=== PATIENT | female | born 1970 | race Caucasian/White ===

== ENCOUNTER → 2017-11-24 | Outpatient (CLI) | payer OTHER, BC | LOC: RAD 15:28 | DX: G89.29 Other chronic pain (principal); M54.6 Pain in thoracic spine; M47.896 Other spondylosis, lumbar region ==

== ENCOUNTER 2018-12-18 09:25 | Emergency (ER) | payer OTHER ==
[~2018-12-18] VITALS: Ht 167.6 cm; Wt 99.8 kg
[2018-12-18] MEDS ORDERED: NAPROSYN500 MG PO (11:51)
[2018-12-18] MEDS ORDERED: NORFLEX100 MG PO (11:51)
[2018-12-18 12:19] VITALS: BP 146/81
== END 2018-12-18 12:20 | disposition home or self-care (01) ==
LOC: ER 09:25
DX: S16.1XXA Strain of muscle, fascia and tendon at neck level, initial encounter (principal); S39.012A Strain of muscle, fascia and tendon of lower back, initial encounter; Z88.5 Allergy status to narcotic agent; W07.XXXA Fall from chair, initial encounter; Y93.89 Activity, other specified; Y92.89 Other specified places as the place of occurrence of the external cause; Y99.8 Other external cause status

== ENCOUNTER → 2019-01-28 | Outpatient (CLI) | payer OTHER ==
[~2019-01-28] MED LIST: NAPROSYN500 MG PO; NORFLEX100 MG PO
== END ==
LOC: MRI 10:45
DX: M51.25 Other intervertebral disc displacement, thoracolumbar region (principal); M54.13 Radiculopathy, cervicothoracic region

== ENCOUNTER → 2019-03-16 | Outpatient (CLI) | payer OTHER ==
--- NOTE | ~2019-03-16 | EEG ---
[facility] [address] [place] [address] ELECTROENCEPHALOGRAM Name: DAVE SALMERON Room #: REG DARIO Narciso.Laya.#: [id number] ������������������ Admission: 03/16/19 ������������������ Attend Phys: Isaac Dominguez MD Discharge: ������������������ Date of : 72 Report #: [id number] ����������������������������������������������������������������� [id number] THIS REPORT FOR: //name// CC: Dior Dominguez DATE OF SERVICE: 03/16/2019 METHOD: The EEG was done by placing the electrodes by standard 10-20 system of electrode placement. Both referential and sequential montages were used for recording. Background activity in this patient's EEG is about 11 Hz and 30 microvolt. There is symmetrical activity. The patient became drowsy and that is associated with bilateral slowing. Photic stimulation was unremarkable. Throughout the record, no active epileptiform activity was noticed. IMPRESSION: This patient's electroencephalogram is within normal limit. Thank you very much for this referral. ���������������������������������������� ���������������������������������������� By: ��������������������������������������������� 1045 1054 Isaac Dominguez MD /nt
== END ==
LOC: NEURO 11:23
DX: G44.301 Post-traumatic headache, unspecified, intractable (principal); R42 Dizziness and giddiness

== ENCOUNTER → 2019-04-05 | Outpatient (CLI) | payer OTHER, BC | LOC: BC 10:31 | DX: Z12.31 Encounter for screening mammogram for malignant neoplasm of breast (principal) ==

== ENCOUNTER → 2019-04-08 | Outpatient (CLI) | payer OTHER, BC ==
--- NOTE | 2019-04-08 09:42 | 2DMMODE ---
[facility] [place] [address] 2 D/M-MODE ECHOCARDIOGRAM Name: DAVE SALMERON Room #: REG [facility]#: [id number] ������������� Admission: 04/08/19 ������������� Attend Phys: Isaac Dominguez, Discharge: ��� ������������� ��� Date of : 72 Date of Service: 04/08/19 0942 �� Report #: [id number] �������� ��������������������������������������������[id number] THIS REPORT FOR: //name// APPROVED REPORT Study performed: 04/08/2019 08:10:09 EXAM: Comprehensive 2D, Doppler, and color-flow Echocardiogram Patient Location: Echo lab, Out-Patient Status: routine BSA: 2.15 HR: 72 bpm BP: 124/82 mmHg Rhythm: NSR Other Information Study Quality: Adequate Risk Factors: Cardiac Risk Factors: HTN Indications Intractable Headache R/O PFO Echo Enhancing Agent Indication: Rule Out Septal Defect Agent(s) / Amount(s) Used: Agitated Saline 7 cc 2D Dimensions IVSd: 10.80 (7-11mm) LVOT Diam: 21.00 (18-24mm) LVDd: 47.33 mm PWd: 11.58 (7-11mm) Ascending Ao: 34.61 (22-36mm) LVDs: 33.34 (25-40mm) Aortic Root: 30.05 mm LV Single Plane 4CH: 40.99 % LV Single Plane 2CH: 55.98 % Biplane EF: 51.5 % Volumes Left Atrial Volume (Systole) Single Plane 4CH: 65.74 mL Single Plane 2CH: 53.19 mL LA ESV Index: 30.00 mL/m2 [facility] [address] [place] [address] 2 D/M-MODE ECHOCARDIOGRAM Name: DAVE SALMERON TORI Room #: REG [facility]#: [id number] ������������� Admission: 04/08/19 ������������� Attend Phys: Isaac Dominguez, Discharge: ��� ������������� ��� Date of : 72 Date of Service: 04/08/19 0942 �� Report #: [id number] �������� ��������������������������������������������[id number] Aortic Valve AoV Peak Jim.: 1.56 m/s AO Peak Gr.: 9.79 mmHg LVOT Max P.80 mmHg LVOT Max V: 0.97 m/s NADEEN Vmax: 2.11 cm2 Mitral Valve E/A Ratio: 1.0 MV Decel. Time: 226.94 ms MV E Max Jim.: 0.69 m/s MV A Jim.: 0.69 m/s MV PHT: 65.81 ms IVRT: 69.20 ms TDI E/Lateral E': 6.90 E/Medial E': 11.50 Medial E' Jim.: 0.06 m/s Lateral E' Jim.: 0.10 m/s Pulmonary Valve PV Peak Jim.: 0.81 m/s PV Peak Gr.: 2.64 mmHg Pulmonary Vein P Vein S: 0.70 m/s P Vein A: 0.23 m/s P Vein D: 0.51 m/s P Vein A Dur.: 76.1 msec P Vein S/D Ratio: 1.37 Tricuspid Valve TR Peak Jim.: 2.17 m/s RAP Estimate: 7.00 mmHg TR Peak Gr.: 18.79 mmHg PA Pressure: 26.00 mmHg Left Ventricle The left ventricle is normal size. There is normal LV segmental wall motion. There is normal left ventricular wall thickness. The left ventricular systolic function is normal. The left ventricular ejection fraction is within the normal range. LVEF is 50-55%. Right Ventricle The right ventricle is normal size. The right ventricular systolic function is normal. Atria The left atrium size is normal. Injection of bubbles documented no interatrial shunt. The right atrium size is normal. [facility] [address] [place] [address] 2 D/M-MODE ECHOCARDIOGRAM Name: DAVE SALMERON Room #: REG [facility]#: [id number] ������������� Admission: 04/08/19 ������������� Attend Phys: Isaac Dominguez, Discharge: ��� ������������� ��� Date of : 72 Date of Service: 04/08/19 0942 �� Report #: [id number] �������� ��������������������������������������������[id number] Aortic Valve The aortic valve is normal in structure. No aortic regurgitation is present. There is no aortic valvular stenosis. Mitral Valve The mitral valve is normal in structure. Trace mitral regurgitation. No evidence of mitral valve stenosis. Tricuspid Valve The tricuspid valve is normal in structure. Trace tricuspid regurgitation. Pulmonary artery pressure is 26 mmHg. Pulmonic Valve The pulmonary valve is normal in structure. Trace pulmonic regurgitation. Great Vessels The aortic root is normal in size. The ascending aorta is normal in size. IVC is normal in size and collapses >50% with inspiration. Pericardium There is no pericardial effusion. <Conclusion> The left ventricle is normal size. The left ventricular systolic function is normal. The right ventricle is normal size. The left atrium size is normal. The right atrium size is normal. Injection of bubbles documented no interatrial shunt. The aortic valve is normal in structure. Trace mitral regurgitation. Trace tricuspid regurgitation. Pulmonary artery pressure is 26 mmHg. ��������������������������������������������� <ELECTRONICALLY SIGNED> ���������������������������������������� By: Farhan Melgar MD ��������������������������������������������� 04/08/1941 Farhan Melgar MD /INF
== END ==
LOC: CV 07:07
DX: R51 Headache (principal); R20.2 Paresthesia of skin

== ENCOUNTER → 2019-04-27 | Outpatient (CLI) | payer OTHER, BC ==
[~2019-04-27] VITALS: Ht 167.6 cm; Wt 102.1 kg
[~2019-04-27] MED LIST changes: +FLEXERIL PO; +LOSARTAN-HCTZ1 EAC1 PO; +MOBIC15 MG PO; +NEURONTIN 300300 M1 PO; +OMEPRAZOLE40 MG PO; +OXYBUTYNIN 5 MG5 M2 PO; +TOPAMAX 25 MG T25 M1 PO; +TRAZODONE HCL50 MG PO; +TUMS PO; +VITAMIN C250 MG PO
[2019-04-27 12:34] VITALS: BP 127/89
--- NOTE | 2019-04-27 13:12 | NUR ---
Pain Clinic Assessment: 1. History of Osteoarthritis: Not Applicable History of Rheumatoid Arthritis: Not Applicable 2. Height: 5 ft. 6 in. 167.6 cm. Weight: 225.0 lb. oz. 102.060 kg. Patient's BMI: 36.3 3. Vital Signs: BP: 127/89 Pulse: 90 Resp: 16 Temp: 02 Sat: 97 ECG Mon: 4. Pain Intensity: 5 5. Fall Risk: Dizziness: Y Needs help standing or walking: N Fallen in the last 3 months: Y Fall risk comments: 6. Patient on Blood Thinner: None 7. History of Hypertension: N 8. Opioid Therapy greater than 6 weeks: N Opiate Contract Signed: 9. Risk Assessment Tool Provided: LOW RISK 09/17 10. Functional Assessment Tool: 11. Recreational Drug Use: Never Drug Type: Tobacco Use: Never Smoker Tobacco Type: Amount or Packs/day: How Many Years: Alcohol Use: Yes Frequency: Monthly Quant: 1-2
--- NOTE | 2019-04-28 08:14 | HPC ---
[facility] [address] [place] [address] PAIN MANAGEMENT CONSULTATION Name: DAVE SALMERON Room #: REG DARIO Elder.#: [id number] Admission: 04/27/19 Attend Phys: Arcadio Mirza DO Discharge: Date of : 72 Report #: [id number] THIS REPORT FOR: //name// CC: Arcadio Valdivia MD DATE OF SERVICE: 04/27/2019 REFERRING PHYSICIAN: Dr. Eugenio Gipson. PRIMARY CARE PHYSICIAN: Dior Valdivia MD CHIEF COMPLAINT: Neck pain, bilateral upper extremity pain with paresthesias. HISTORY OF PRESENT ILLNESS: As you know, the patient is a 49-year-old female who reports acute onset of neck pain, bilateral upper extremity pain that began on 12/18/2018. The patient did not report any specific injury or trauma on her intake sheet that may have led the symptom development. She states she has been dealing with pain for a period of time and has undergone injections with Dr. Gipson in regards to lumbar related pain. The patient apparently was evaluated and determined that she was suffering from cervical radiculopathy and was then subsequently referred to our clinic to trial cervical epidural injections to address neck and upper extremity pain. The patient indicates today pain is continuous, constant and periodic with brief exacerbations. She describes the pain as burning, shooting, throbbing, pounding, sharp, stabbing, numbness and tingling. She places current pain score 5/10, daily average of 4-5/10, worst pain has been is 10/10. The patient states that specific activities exacerbate symptoms, specifically on how she sits or moves her neck. Pain is improved with decreased moving and decreased activity. After undergoing imaging of the cervical spine with the findings at the C5-C6 level with a large, broad-based posterior disk bulge, the patient was referred to trial cervical epidural injections. PAST MEDICAL HISTORY: 1. Hypertension. 2. Gastroesophageal reflux disease. 3. History of headaches. PAST SURGICAL HISTORY: 1. [place] teeth extraction. 2. Hysterectomy with bladder sling. SOCIAL HISTORY: The patient denies tobacco, IV or illicit drug use. Admits to [facility] [address] [place] [address] PAIN MANAGEMENT CONSULTATION Name: DAVE SALMERON Room #: REG [facility] [id number] Admission: 04/27/19 Attend Phys: Arcadio Mirza DO Discharge: Date of : 72 Report #: [id number] occasional alcohol beverage. She is employed as a medical device sales. She is working about 4-6 hours daily. She is receiving workman's compensation. She is not in litigation in regards to her pain. She is unaccompanied today. REVIEW OF SYSTEMS: Positive for night sweats, fatigue and weakness, frequent and recurrent headaches, wearing corrective eyewear, blurred and double vision, nausea, frequent urination, nocturia, dysuria, incontinence and dribbling to urine, lightheadedness and dizziness, numbness and tingling sensations, history of head injury, memory loss with confusion, insomnia. All other review of systems negative per 12-point review of systems other than those listed in history of present illness. Pain impact score 43/70 indicating moderate to severe interference of daily activities secondary to pain. ALLERGIES: SULFA AND LISINOPRIL. CURRENT MEDICATIONS: Calcium carbonate 500 mg twice a day, ascorbic acid 250 mg once a day, oxybutynin 5 mg once a day, trazodone 50 mg p.o. at bedtime, omeprazole 40 mg per day, topiramate 25 mg b.i.d., gabapentin 300 mg p.o. at bedtime, meloxicam 15 mg once a day, losartan/hydrochlorothiazide 100/25 mg dose once a day, Flexeril 10 mg p.r.n. muscle spasms. IMAGING: MRI of cervical spine obtained on 01/28/2019 shows C2-C3 unremarkable, C3-C4 unremarkable, C4-C5 unremarkable, C5-C6 large, broad-based posterior disk bulge with superimposed right central disk protrusion/extrusion which migrates caudally from the disk space approximately 9 mm with effacement and mass effect upon the central and right paracentral ventral aspect of the spinal cord. There is moderate to severe stenosis most prominent on the right paracentral region. Moderate to severe right and moderate left neural foraminal narrowing. C6-C7 unremarkable, C7-T1 unremarkable. PHYSICAL EXAMINATION: VITAL SIGNS: Blood pressure 127/89, pulse is 90, respiratory rate 16 and unlabored. The patient is 97% on room air. Height 5 feet 6 inches tall, weight 225 pounds, BMI calculated 36.3. GENERAL: Well-developed, well-nourished, well-hydrated, morbidly obese 49-year-old female appearing her stated age, placing current pain score 5/10. HEENT: Normocephalic, atraumatic. Pupils equal, round, reactive to light. Extraocular muscles are intact. Sclerae nonicteric without injection. NEUROLOGIC: Cranial nerves 2-12 grossly intact. Speech is fluent. The patient deemed a good historian. LUNGS: Clear. No wheeze, rhonchi or rales. CARDIOVASCULAR: Regular. No appreciable gallop, no rub. ABDOMEN: Soft, obese, nontender. Normoactive bowel sounds. EXTREMITIES: Show no clubbing, no cyanosis, and no edema. [facility] [address] [place] [address] PAIN MANAGEMENT CONSULTATION Name: DAVE SALMERON Room #: REG DARIO Miguel.#: [id number] Admission: 04/27/19 Attend Phys: Arcadio Mirza DO Discharge: Date of : 72 Report #: [id number] MUSCULOSKELETAL: Upper extremity strength appears symmetrical 5/5, intact to light touch from C5 through T1 dermatomes. Deep tendon reflexes are symmetrical at biceps, brachioradialis and triceps. Cervical provocation testing is met with increasing pain with right lateral flexion as well as rotation to the right. Spurling's test positive right, negative left. ASSESSMENT: 1. Cervical radiculopathy. 2. Displacement of cervical intervertebral disk with radiculopathy. 3. Cervical spinal stenosis. 4. Cervical spondylosis with radiculopathy. 5. Neural foraminal stenosis of the cervical spine. 6. Cervical degeneration. 7. Chronic intractable pain. PLAN: 1. Based on today's physical exam and the history the patient has provided, the descriptors the patient uses in regards to pain, the distribution of symptoms and the findings of her MRI, these all correlate to a cervical radiculopathy. We discussed with the patient treatment options for cervical radiculopathy due to a large broad-based disk protrusion causing severe central canal stenosis at the C5-C6 level. We discussed the following with the patient as treatment options to address symptoms she is currently experiencing and any future symptoms that may occur. 2. We discussed physical therapy, stretching exercises and traction techniques as a treatment option. We discussed medication management utilizing neuropathic pain medications and a consistent nonsteroidal anti-inflammatory. We discussed cervical epidural injection for which the patient was referred to our clinic. We also discussed spinal cord stimulators and ultimately surgical decompression of the C5-C6 level. After reviewing the risks and benefits of all the proposed treatment options, the patient requested to move forward with a cervical epidural injection. 3. The patient was advised risks and benefits of a cervical epidural injection. These risks include, but are not necessarily limited to bleeding, bruising, infection, worsening of pain, no relief of pain, also risk of temporary or permanent muscle weakness, temporary or permanent nerve damage, possible paralysis, post-dural puncture, and . The patient states understood and wished to proceed. 4. No medication changes made at today's visit. We recommend the patient to continue current medical therapy as previously prescribed. 5. We will see the patient back in followup visit on an as-needed basis for possible next in the series of cervical epidural injections. We are hopeful the patient will see good and prolonged benefit with this procedure. She is to follow up with Dr. Gipson post-procedurally to discuss efficacy. 6. We wish to thank the referring team for the opportunity to see the patient in consultation. We will keep you apprised [place] [address] PAIN MANAGEMENT CONSULTATION Name: DAVE SALMERON Room #: REG DARIO King#: [id number] Admission: 04/27/19 Attend Phys: Arcadio Mirza DO Discharge: Date of : 72 Report #: [id number] address her cervical radicular symptoms. Again, we wish to thank you for the opportunity to see the patient in consultation. PROCEDURE NOTE: DESCRIPTION OF PROCEDURE: C7-T1 cervical epidural steroid injection under fluoroscopic guidance. This is the first procedure of the first series that the patient is undergoing. After obtaining written consent, the patient was taken back to the fluoroscopy suite and placed in a prone position with separate pillows under chest and forehead to decrease cervical lordosis. The skin overlying the cervical area was prepped and draped in an aseptic fashion. The C7-T1 vertebral interspace was identified by AP fluoroscopy. The skin and subcutaneous tissue overlying the target site of injection was anesthetized using 3 mL of 1% lidocaine. A 20-gauge 3-1/2-inch Tuohy needle was advanced under fluoroscopic guidance toward the epidural space using a midline approach. The epidural space was identified using a loss of resistance to air technique. After negative aspiration for heme or cerebrospinal fluid, a total of 1 mL of Omnipaque was injected. A cervical epidurogram was confirmed using AP and oblique fluoroscopy. After negative aspiration for heme or cerebrospinal fluid, 5 mL of a solution containing 2 mL, 40 mg per mL, 80 mg total triamcinolone and 3 mL of lidocaine 1% was injected in increments. Contrast spread was noted from posterior epidural space. The needle was then retracted approximately fpc and the needle track was flushed with 1 mL of 1% lidocaine. There were no apparent new sensory deficits in the upper extremities present following the procedure. A sterile bandage was placed over the injection site. The heart rate, pulse oximetry and blood pressure were continuously monitored after the procedure. There were no apparent complications. The patient tolerated the procedure well and was carefully escorted in the recovery room in stable condition. After meeting discharge criteria, the patient was discharged home. <ELECTRONICALLY SIGNED> By: Arcadio Mirza DO 04/28/19 0814 [id number] Arcadio Mirza DO /nt
== END | disposition home or self-care (01) ==
LOC: PAIN 06:55
DX: M50.13 Cervical disc disorder with radiculopathy, cervicothoracic region (principal); M48.02 Spinal stenosis, cervical region; M47.22 Other spondylosis with radiculopathy, cervical region; M99.71 Connective tissue and disc stenosis of intervertebral foramina of cervical region; G89.29 Other chronic pain; I10 Essential (primary) hypertension; K21.9 Gastro-esophageal reflux disease without esophagitis; E66.01 Morbid (severe) obesity due to excess calories; Z98.890 Other specified postprocedural states; Z88.2 Allergy status to sulfonamides; Z88.8 Allergy status to other drugs, medicaments and biological substances; Z79.899 Other long term (current) drug therapy; Z68.36 Body mass index [BMI] 36.0-36.9, adult

== ENCOUNTER → 2019-05-13 | Outpatient (CLI) | payer OTHER, BC ==
[~2019-05-13] MED LIST changes: +KLOR-CON 1010 MEQ PO
== END ==
LOC: MRI 07:32
DX: M47.815 Spondylosis without myelopathy or radiculopathy, thoracolumbar region (principal); M51.84 Other intervertebral disc disorders, thoracic region; M48.05 Spinal stenosis, thoracolumbar region

== ENCOUNTER → 2019-05-18 | Outpatient (CLI) | payer OTHER, BC ==
[~2019-05-18] VITALS: Ht 167.6 cm; Wt 107.5 kg
--- NOTE | ~2019-05-18 | HPC ---
[facility] [address] [place] [address] PAIN MANAGEMENT CONSULTATION Name: DAVE SALMERON Room #: REG DARIO Jerrod.#: [id number] Admission: 05/18/19 Attend Phys: Arcadio Mirza DO Discharge: Date of : 72 Report #: [id number] THIS REPORT FOR: //name// CC: Arcadio Valdivia MD DATE OF SERVICE: 05/18/2019 CHIEF COMPLAINT: Neck pain, bilateral upper extremity pain with paresthesias. HISTORY OF PRESENT ILLNESS: As you know, the patient is a 49-year-old female who reports acute onset of neck pain, bilateral upper extremity pain, which began 12/18/2018. She reports no specific injury or trauma on her intake sheet, but did indicate she had had pain for a period of time. She was seen per the request of Dr. Gipson, 04/27/2019, to undergo a cervical epidural injection under fluoroscopic guidance. She underwent the injection at that visit with improvement in symptoms of greater than 60%, lasting for almost 3 weeks. Unfortunately, her symptoms have begun to return. She indicates pain begins in the neck, radiates to the shoulders and bilateral hands. She states pain is burning, shooting, throbbing, pounding, sharp, stabbing and tender when describing symptoms. She is placing pain score 5/10. She denies new injury or trauma that may have led to symptom reoccurrence. She returns today requesting to undergo next in the series of cervical epidural injections to build on success of previous intervention. ALLERGIES: SULFA, LISINOPRIL. CURRENT MEDICATIONS: Calcium carbonate, ascorbic acid, oxybutynin, trazodone, omeprazole, topiramate, gabapentin, meloxicam, losartan, hydrochlorothiazide, Flexeril. SOCIAL HISTORY: The patient denies tobacco, IV or illicit drug use. Admits to occasional alcohol beverage. She is employed, unaccompanied today. IMAGING: There is no new imaging available. PHYSICAL EXAMINATION: VITAL SIGNS: Blood pressure 148/101, pulse 87, respiratory rate 16 and unlabored. The patient is 97% on room air. Height 5 feet 6 inches tall, weight 237 pounds, BMI calculated 38.3. GENERAL: Well-developed, well-nourished, well-hydrated, exogenously obese 49-year-old female appearing stated age, pain is rated around 5/10. HEENT: Normocephalic, atraumatic. Pupils equal, round, reactive to light. Speech is fluent. The patient deemed a good historian. [address] [address] PAIN MANAGEMENT CONSULTATION Name: DAVE SALMERON [place] Room #: REG DARIO King#: [id number] Admission: 05/18/19 Attend Phys: Arcadio Mirza DO Discharge: Date of : 72 Report #: [id number] EXTREMITIES: Show no clubbing, no cyanosis, and no edema. MUSCULOSKELETAL: Upper extremity strength remains symmetrical 5/5. She appears to be intact to light touch from C5 through T1 dermatomes. I have not noted any loss of tactile sensation. Deep tendon reflexes symmetrical biceps, brachialis and triceps. Spurling's testing is positive on the right. ASSESSMENT: 1. Cervical radiculopathy. 2. Displacement of a cervical intervertebral disk with radiculopathy. 3. Cervical spinal stenosis. 4. Cervical spondylosis. 5. Cervical neural foraminal stenosis. 6. Cervical degeneration. 7. Chronic intractable pain. PLAN: 1. The patient returns today in followup visit to undergo the second in the series of cervical epidural injections. The patient reported up to 60% improvement in overall pain with the initial injection and is hopeful to see similar improvement today. She denies new injury, trauma or any changes in medical history since our last visit. She returns today to undergo second in the series of cervical epidural injections in hopes of improving cervical radicular symptoms. The patient has been advised risks and benefits of a cervical epidural injection. These risks include but are not necessarily limited to bleeding, bruising, infection, worsening pain, no relief of pain, also risk of temporary or permanent muscle weakness, temporary or permanent nerve damage, possible paralysis, post-dural puncture headache and . The patient states understood and wished to proceed. 2. No medication changes made at today's visit. The patient will continue current medical therapy as prescribed by her treating physicians. 3. It was noted that the patient's blood pressure is elevated today, pressure rated at 148/101. Previous blood pressure was 127/89. I recommend that patient follow up with her PCP as quickly as possible for evaluation of this elevated blood pressure. I do not feel this is related to pain as her heart rate is only mildly elevated from our last visit and does not correlate with pain symptomology. 4. We will see the patient back in followup visit on an as needed basis for possible next in the series of cervical epidural injections. DESCRIPTION OF PROCEDURE: C7-T1 cervical epidural steroid injection under fluoroscopic guidance. This is the second procedure of the first series that the patient is undergoing. [address] [address] PAIN MANAGEMENT CONSULTATION Name: DAVE SALMERON Room #: REG CLLupe Elder#: [id number] Admission: 05/18/19 Attend Phys: Arcadio Mirza DO Discharge: Date of : 72 Report #: [id number] After obtaining written consent, the patient was taken back to the fluoroscopy suite and placed in a prone position with separate pillows under the chest and forehead to decrease cervical lordosis. The skin overlying the cervical area was prepped and draped in an aseptic fashion. The C7-T1 vertebral interspace was identified by AP fluoroscopy. The skin and subcutaneous tissue overlying the target site of injection was anesthetized using 3 mL of 1% lidocaine. A 20-guage 3-1/2 inch Tuohy needle was advanced under fluoroscopic guidance toward the epidural space using a midline approach. The epidural space was identified using a loss of resistance to air technique. After negative aspiration for heme or cerebrospinal fluid, a total of 1 of Omnipaque was injected. A cervical epidurogram was confirmed using AP and oblique fluoroscopy. After negative aspiration for heme or cerebrospinal fluid, 5 mL of a solution containing 2 mL 40 mg/mL, 80 mg total triamcinolone and 3 mL of lidocaine 1% was injected in increments. Contrast spread was noted from posterior epidural space. The needle was then retracted approximately retirement and the needle track was flushed with 1 mL of 1% lidocaine. There were no apparent new sensory deficits in the upper extremities present following the procedure. A sterile bandage was placed over the injection site. The heart rate, pulse oximetry and blood pressure were continuously monitored after the procedure. There were no apparent complications. The patient tolerated the procedure well and was carefully escorted in the recovery room in stable condition. After meeting discharge criteria, the patient was discharged home. By: [id number] Arcadio Mirza DO /nt
[2019-05-18 08:12] VITALS: BP 148/101
--- NOTE | 2019-05-18 08:14 | NUR ---
Pain Clinic Assessment: 1. History of Osteoarthritis: Not Applicable History of Rheumatoid Arthritis: Not Applicable 2. Height: 5 ft. 6 in. 167.6 cm. Weight: 237.0 lb. oz. 107.503 kg. Patient's BMI: 38.3 3. Vital Signs: BP: 148/101 Pulse: 87 Resp: 16 Temp: 02 Sat: 97 ECG Mon: 4. Pain Intensity: 5 5. Fall Risk: Dizziness: N Needs help standing or walking: N Fallen in the last 3 months: Y Fall risk comments: 6. Patient on Blood Thinner: None 7. History of Hypertension: N 8. Opioid Therapy greater than 6 weeks: N Opiate Contract Signed: 9. Risk Assessment Tool Provided: LOW RISK 1 10. Functional Assessment Tool: 11. Recreational Drug Use: Never Drug Type: Tobacco Use: Never Smoker Tobacco Type: Amount or Packs/day: How Many Years: Alcohol Use: Yes Frequency: Quant:
== END | disposition home or self-care (01) ==
LOC: PAIN 06:43
DX: M50.10 Cervical disc disorder with radiculopathy, unspecified cervical region (principal); M48.061 Spinal stenosis, lumbar region without neurogenic claudication; M47.22 Other spondylosis with radiculopathy, cervical region; G89.29 Other chronic pain; Z79.899 Other long term (current) drug therapy; Z98.890 Other specified postprocedural states; Z88.2 Allergy status to sulfonamides; Z88.8 Allergy status to other drugs, medicaments and biological substances

== ENCOUNTER → 2019-09-28 | Outpatient (CLI) | payer OTHER, BC ==
[~2019-09-28] VITALS: Ht 167.6 cm; Wt 104.8 kg
[2019-09-28 08:09] VITALS: BP 145/90
--- NOTE | 2019-09-28 08:15 | NUR ---
Pain Clinic Assessment: 1. History of Osteoarthritis: NECK BACK History of Rheumatoid Arthritis: Not Applicable 2. Height: 5 ft. 6 in. 167.6 cm. Weight: 231.0 lb. oz. 104.781 kg. Patient's BMI: 37.3 3. Vital Signs: BP: 145/90 Pulse: 73 Resp: 16 Temp: 02 Sat: 97 ECG Mon: 4. Pain Intensity: 6 5. Fall Risk: Dizziness: Y Needs help standing or walking: N Fallen in the last 3 months: N Fall risk comments: 6. Patient on Blood Thinner: None 7. History of Hypertension: N 8. Opioid Therapy greater than 6 weeks: N Opiate Contract Signed: 9. Risk Assessment Tool Provided: LOW RISK 1 10. Functional Assessment Tool: 11. Recreational Drug Use: Never Drug Type: Tobacco Use: Never Smoker Tobacco Type: Amount or Packs/day: How Many Years: Alcohol Use: Yes Frequency: Special Occasions Quant: 1
--- NOTE | 2019-09-28 12:33 | HPC ---
[facility] [address] [place] [address] PAIN MANAGEMENT CONSULTATION Name: DAVE SALMERON Room #: REG DARIO Christine#: [id number] Admission: 09/28/19 Attend Phys: Arcadio Mirza DO Discharge: Date of : 72 Report #: [id number] THIS REPORT FOR: //name// CC: Arcadio Valdivia DATE OF SERVICE: 09/28/2019 CHIEF COMPLAINT: Low back pain, upper buttock pain. HISTORY OF PRESENT ILLNESS: As you know, the patient is a 49-year-old female who has returned today in followup visit per the request of her referring physician to undergo lumbar epidural injection under fluoroscopic guidance. The patient has been treated from a cervical radicular standpoint over the past; the most recent evaluation for cervical radicular symptoms was 05/18/2019 where she underwent a cervical epidural injection. She returns today in followup visit per the request of the referring physician to trial a lumbar epidural injection to determine if her symptoms would improve with treatment in this area to address axial back pain. The patient indicates no new injury or trauma, has had chronic back pain for an extended period of time. She returns today in followup visit to undergo a lumbar epidural injection under fluoroscopic guidance. ALLERGIES: SULFA, LISINOPRIL. CURRENT MEDICATIONS: Calcium carbonate, ascorbic acid, oxybutynin, trazodone, omeprazole, topiramate, gabapentin, meloxicam, losartan, hydrochlorothiazide, Flexeril. SOCIAL HISTORY: The patient denies tobacco, IV or illicit drug use. Admits to occasional alcohol beverage. She is employed, unaccompanied today. IMAGING: No new imaging available. PHYSICAL EXAMINATION: VITAL SIGNS: Blood pressure 145/90, pulse 73, respiratory rate 16 and unlabored. The patient is 97% on room air. Height 5 feet 6 inches tall, weight 231 pounds, BMI calculated 37.3. GENERAL: Well-developed, well-nourished, well-hydrated 49-year-old female appearing stated age, pain is rated today 6/10. HEENT: Normocephalic, atraumatic. Pupils equal, round, reactive to light. NEUROLOGIC: Speech fluent. The patient deemed a good historian. EXTREMITIES: Show no clubbing, no cyanosis, and no edema. MUSCULOSKELETAL: The patient has some palpatory tenderness over the paraspinal musculature of the lumbar spine at approximately L2 level to the iliac crests. There is no spinous process tenderness. Seated straight leg raising negative. Supine straight leg raising negative. [place] [address] PAIN MANAGEMENT CONSULTATION Name: DAVE SALMERON [place] Room #: REG DARIO King#: [id number] Admission: 09/28/19 Attend Phys: Arcadio Mirza DO Discharge: Date of : 72 Report #: [id number] Gaenslen's positive for axial low back pain. Ankle clonus negative. Babinski is negative. ASSESSMENT: 1. Chronic low back pain. 2. Displacement of lumbar intervertebral disk. 3. Lumbosacral spondylosis. 4. Chronic low back pain. PLAN: 1. The patient has returned today in followup visit per the request of referring physician to undergo lumbar epidural injection under fluoroscopic guidance to address suspected lumbar radiculopathy. The patient indicates pain level today of about 6/10. She states she has suffered no new injury or trauma, but continues to experience axial back pain due to pain generator from an incident at work. She has been referred to our clinic to trial an epidural injection under fluoroscopic guidance in hopes of improving pain. The patient was advised risks and benefits of a lumbar epidural injection. These risks include but are not necessarily limited to bleeding, bruising, infection, worsening pain, no relief of pain, also risk of temporary or permanent muscle weakness, temporary or permanent nerve damage, possible paralysis, post-dural puncture headache and . The patient states understood and wished to proceed. 2. No medication changes made at today's visit. The patient will continue current medical therapy as prior prescribed. 3. The patient was provided a release from work for tomorr, 09/29/2009 to recover from today's procedure and allow for the greatest efficacy with the injection. The patient was given this prescription in written form. 4. We will see the patient back in followup visit on an as needed basis for further treatment options. The patient has completed 3 injections in a 6-month period starting in April. Next available injection will be 10/28 or beyond. PROCEDURE NOTE DESCRIPTION OF PROCEDURE: L1-L2 interlaminar epidural steroid injection under fluoroscopic guidance. After obtaining written consent, the patient was taken back to fluoroscopy suite, placed in prone position with pillow under abdomen to decrease lumbar lordosis. Skin overlying lumbosacral area then prepped and draped in aseptic fashion. The L1-L2 interspace was identified by AP fluoroscopy. Skin and subcutaneous tissue overlying target site injection anesthetized with 3 mL of 1% lidocaine. A 20-gauge 3-1/2 inch Tuohy needle advanced under fluoroscopic guidance towards [address] [address] PAIN MANAGEMENT CONSULTATION Name: DAVE SALMERON Room #: REG DARIO King#: [id number] Admission: 09/28/19 Attend Phys: Arcadio Mirza DO Discharge: Date of : 72 Report #: [id number] the epidural space using a midline approach. Epidural space identified using loss of resistance to air technique. After negative aspiration for heme or cerebrospinal fluid, 1 mL of Omnipaque injected. Lumbar epidurogram confirmed using both AP and lateral fluoroscopy. After negative aspiration for heme or cerebrospinal fluid, 5 mL of a solution containing 2 mL 40 mg per mL, 80 mg total triamcinolone along with 3 mL of lidocaine 1% injected slowly. Needle retracted chcf, flushed with 1 mL of 1% lidocaine and then removed. Sterile bandage placed over injection site. No new motor deficits present in the lower extremities following procedure. The patient tolerated procedure well, carefully escorted to recovery room in stable condition. No apparent complications. After meeting discharge criteria, the patient discharged home. <ELECTRONICALLY SIGNED> By: Arcadio Mirza DO 09/28/19 [id number] Arcadio Mirza DO /nt
== END | disposition home or self-care (01) ==
LOC: PAIN 06:35
DX: M51.26 Other intervertebral disc displacement, lumbar region (principal); M47.897 Other spondylosis, lumbosacral region; G89.29 Other chronic pain; Z98.890 Other specified postprocedural states; Z79.899 Other long term (current) drug therapy; Z88.2 Allergy status to sulfonamides; Z88.8 Allergy status to other drugs, medicaments and biological substances

== ENCOUNTER → 2019-11-02 | Outpatient (CLI) | payer OTHER, BC ==
[~2019-11-02] VITALS: Ht 167.6 cm; Wt 104.0 kg
[2019-11-02 13:21] VITALS: BP 134/98
--- NOTE | 2019-11-02 13:41 | NUR ---
Pain Clinic Assessment: 1. History of Osteoarthritis: NECK BACK History of Rheumatoid Arthritis: Not Applicable 2. Height: 5 ft. 6 in. 167.6 cm. Weight: 229.2 lb. oz. 103.965 kg. Patient's BMI: 37.0 3. Vital Signs: BP: 134/98 Pulse: 88 Resp: 16 Temp: 02 Sat: 98 ECG Mon: 4. Pain Intensity: 5 5. Fall Risk: Dizziness: N Needs help standing or walking: N Fallen in the last 3 months: N Fall risk comments: 6. Patient on Blood Thinner: None 7. History of Hypertension: N 8. Opioid Therapy greater than 6 weeks: N Opiate Contract Signed: 9. Risk Assessment Tool Provided: LOW RISK 1 10. Functional Assessment Tool: 44 11. Recreational Drug Use: Never Drug Type: Tobacco Use: Never Smoker Tobacco Type: Amount or Packs/day: How Many Years: Alcohol Use: Yes Frequency: Special Occasions Quant: 1
--- NOTE | 2019-11-09 07:45 | HPC ---
[facility] [address] [place] [address] PAIN MANAGEMENT CONSULTATION Name: DAVE SALMERON Room #: REG DARIO Jerrod.#: [id number] Admission: 11/02/19 Attend Phys: Arcadio Mirza DO Discharge: Date of : 72 Report #: [id number] THIS REPORT FOR: cc: Dior Valdivia MD, Nora P. MD Johnson, James E. DO ~ THIS REPORT FOR: //name// DATE OF SERVICE: 11/02/2019 CHIEF COMPLAINT: Low back pain. HISTORY OF PRESENT ILLNESS: As you know, the patient is a 49-year-old female who has returned today in followup visit having received authorization to undergo lumbar epidural injection under fluoroscopic guidance. The patient reports low back pain, upper buttock pain that has been present for an extended period of time. She has done very well with cervical epidural injections, the first being provided 04/2019, a second in 05/2019 and the third provided 09/28/2019. This completes the set of 3 epidural injections in a 6-month period, which is limited strictly by the exposure of steroid medication. She returns today in followup visit having received authorization to undergo a lumbar epidural injection. This would start the second series of injections with only 3 of these type of injections to be provided in the 6 months. This would reduce our ability of addressing her cervical radicular symptoms with epidural injections by one injection. She states she understands and does wish to proceed. ALLERGIES: SULFA AND LISINOPRIL. CURRENT MEDICATIONS: Calcium carbonate, ascorbic acid, oxybutynin, trazodone, omeprazole, topiramate, gabapentin, meloxicam, losartan, hydrochlorothiazide, and Flexeril. SOCIAL HISTORY: The patient denies tobacco, IV or illicit drug use. Admits to occasional alcohol beverage. She is employed and working, unaccompanied today. IMAGING: No new imaging available. PHYSICAL EXAMINATION: VITAL SIGNS: Blood pressure 134/98, pulse 88, respiratory rate 16 and unlabored. The patient is 98% on room air. Height 5 feet 6 inches tall, weight 229.2 pounds, BMI calculated 37.0. GENERAL: Well-developed, well-nourished, well-hydrated exogenously obese 49-year-old female appearing stated age. Pain is rated today at 5/10. [address] [address] PAIN MANAGEMENT CONSULTATION Name: DAVE SALMERON Room #: REG DARIO Jerrod.#: [id number] Admission: 11/02/19 Attend Phys: Arcadio Mirza DO Discharge: Date of : 72 Report #: [id number] HEENT: Normocephalic, atraumatic. Pupils equal, round, reactive to light. NEUROLOGIC: Speech fluent. The patient deemed a good historian. EXTREMITIES: Show no clubbing, no cyanosis, no edema. MUSCULOSKELETAL: Lower extremity strength appears equal and symmetrical 5/5, intact to light touch from L1 through S2 dermatomes. Seated straight leg raising negative. Supine straight leg raising is negative. Deena test negative. Modified Gaenslen positive for axial low back pain. Ankle clonus negative. ASSESSMENT: 1. Chronic low back pain. 2. Displacement of lumbar intervertebral disk. 3. Lumbosacral spondylosis. 4. Chronic back pain. PLAN: 1. The patient returns today in followup visit having received authorization to undergo a lumbar epidural injection under fluoroscopic guidance. The patient has been advised risks and benefits of a lumbar epidural injection. These risks include but are not necessarily limited to bleeding, bruising, infection, worsening pain, no relief of pain, also risk of temporary or permanent muscle weakness, temporary or permanent nerve damage, possible paralysis and . The patient states understood and wished to proceed. 2. The patient and I did discuss that this is the first in the series of epidural injections to be provided in the 6 months. We have 2 remaining epidural injections whether these be placed in the cervical spine or the lumbar spine. We recommend that the patient utilize these injections only when pain is intolerable, not to rely on this injection as a prophylactic treatment course. We have based on today's date 2 epidural injections to be provided in the month of December, January, February, March, April. These injections include the cervical injections as the patient is limited not by the amount of injections but by the amount of steroid provided in each injection. The patient will keep this in mind that she makes her next appointment for an epidural injection. 3. No medication changes made at today's visit. The patient will continue current medical therapy as previously prescribed. 4. The patient was provided a release from work for tomorrow, 11/03/2019 to recover from today's procedure and allow the greatest efficacy of the epidural injection to be realized. Prescription was given to the patient in written form today. 5. We will see the patient back in followup visit on an as needed basis for possible next in the series of injections to address either cervical radiculopathy or lumbar radiculopathy. PROCEDURE NOTE: Lumbar epidural steroid injection under fluoroscopic guidance. After obtaining written consent, the patient was taken back to fluoroscopy [address] [address] PAIN MANAGEMENT CONSULTATION Name: DAVE SALMERON Room #: REG CL Jerrod#: [id number] Admission: 11/02/19 Attend Phys: Arcadio Mirza DO Discharge: Date of : 72 Report #: [id number] suite, placed in prone position with pillow under abdomen to decrease lumbar lordosis. Skin overlying lumbosacral area then prepped and draped in aseptic fashion. The lumbar intervertebral spaces were identified by AP fluoroscopy. Skin and subcutaneous tissue overlying target site injection anesthetized with 3 mL of 1% lidocaine. A 20-gauge 4-1/2 inch Tuohy needle advanced under fluoroscopic guidance towards the epidural space using midline approach. Epidural space identified using loss of resistance to air technique. After negative aspiration for heme or cerebrospinal fluid, 1 mL of Omnipaque injected. Lumbar epidurogram confirmed using both AP and lateral fluoroscopy. After negative aspiration for heme or cerebrospinal fluid, 5 mL of a solution containing 2 mL 40 mg per mL, 80 mg total triamcinolone along with 3 mL of lidocaine 1% injected slowly. Needle retracted mcc, flushed with 1 mL of 1% lidocaine and then removed. Sterile bandage placed over injection site. There were no new motor deficits present in the lower extremities following the procedure. The patient tolerated procedure well, carefully escorted to recovery room in stable condition. No apparent complications. After meeting discharge criteria, the patient discharged home. <ELECTRONICALLY SIGNED> By: Arcadio Mirza DO 11/09/19 0745 [id number] Arcadio Mirza DO /nt
== END | disposition home or self-care (01) ==
LOC: PAIN 06:54
DX: M54.5 Low back pain (principal); M51.16 Intervertebral disc disorders with radiculopathy, lumbar region; M47.27 Other spondylosis with radiculopathy, lumbosacral region; G89.29 Other chronic pain; Z98.890 Other specified postprocedural states; Z79.899 Other long term (current) drug therapy; Z88.2 Allergy status to sulfonamides; Z88.8 Allergy status to other drugs, medicaments and biological substances

== ENCOUNTER → 2020-05-23 | Outpatient (CLI) | payer OTHER ==
[~2020-05-23] VITALS: Ht 167.6 cm; Wt 101.9 kg
[2020-05-23 14:23] VITALS: BP 145/100
--- NOTE | 2020-05-23 14:36 | NUR ---
Pain Clinic Assessment: 1. History of Osteoarthritis: NECK BACK History of Rheumatoid Arthritis: Not Applicable 2. Height: 5 ft. 6 in. 167.6 cm. Weight: 224.6 lb. oz. 101.878 kg. Patient's BMI: 36.3 3. Vital Signs: BP: 145/100 Pulse: 85 Resp: 16 Temp: 02 Sat: 100 ECG Mon: 4. Pain Intensity: 7 5. Fall Risk: Dizziness: N Needs help standing or walking: N Fallen in the last 3 months: N Fall risk comments: 6. Patient on Blood Thinner: None 7. History of Hypertension: N 8. Opioid Therapy greater than 6 weeks: N Opiate Contract Signed: 9. Risk Assessment Tool Provided: LOW RISK 1 10. Functional Assessment Tool: 44 11. Recreational Drug Use: Never Drug Type: Tobacco Use: Never Smoker Tobacco Type: Amount or Packs/day: How Many Years: Alcohol Use: Yes Frequency: Quant:
--- NOTE | 2020-05-24 12:57 | HPC ---
[facility] [address] [place] [address] PAIN MANAGEMENT CONSULTATION Name: DAVE SALMERON Room #: REG DARIO Elder.#: [id number] Admission: 05/23/20 Attend Phys: Arcadio Mirza DO Discharge: Date of : 72 Report #: [id number] THIS REPORT FOR: cc: Dior Valdivia MD, Nora P. MD Johnson, James E. DO ~ DATE OF SERVICE: 05/24/2020 REFERRING PHYSICIAN: Dior Valdivia MD. CHIEF COMPLAINT: Low back pain. HISTORY OF PRESENT ILLNESS: As you know, the patient is a 50-year-old female who has been referred back to our clinic by her workmen's compensation physician to undergo epidural injection under fluoroscopic guidance to address lumbar radiculopathy. The patient reports that the previous injection only allow for minimal improvement lasting for a couple of weeks. She sought further evaluation through her workmen's compensation physician who then referred the patient back to our clinic to retry epidural injections in hopes of improving pain. She returns today with pain level of 7/10. She denies new injury or trauma that may have led to symptom reoccurrence. ALLERGIES: SULFA AND LISINOPRIL. CURRENT MEDICATIONS: Calcium carbonate, ascorbic acid, oxybutynin, trazodone, omeprazole, cyclobenzaprine, losartan, hydrochlorothiazide, meloxicam, ascorbic acid, potassium chloride. SOCIAL HISTORY: The patient denies tobacco, IV or illicit drug use. Admits to occasional alcohol beverage. She is employed, working and unaccompanied today. IMAGING: No new imaging available. PHYSICAL EXAMINATION: VITAL SIGNS: Blood pressure 145/100, pulse is 85, respiratory rate 16 and unlabored. The patient is 100% on room air. Height 5 feet 6 inches tall, weight 224.6 pounds, BMI calculated 36.3. GENERAL: Well-developed, well-nourished, well-hydrated, 50-year-old female. She is awake, alert and oriented x 3. Current pain score is rated at 7/10. HEENT: Normocephalic, atraumatic. Pupils equal, round and reactive. NEUROLOGIC: Speech fluent. The patient deemed an excellent historian. EXTREMITIES: Show no clubbing, no cyanosis. No appreciable edema. MUSCULOSKELETAL: Seated straight leg raising is negative. Supine straight leg raising is negative. Deena's test is negative. Modified Gaenslen's positive for some axial low back pain. Ankle clonus negative[place] [address] PAIN MANAGEMENT CONSULTATION Name: DAVE SALMERON [place] Room #: REG [facility] Christine#: [id number] Admission: 05/23/20 Attend Phys: Arcadio Mirza DO Discharge: Date of : 72 Report #: [id number] ASSESSMENT: 1. Chronic low back pain. 2. Displacement of lumbar intervertebral disk. 3. Lumbosacral spondylosis. 4. Chronic intractable pain. PLAN: 1. The patient returns today in followup visit having noted only minimal improvement with epidural injection provided at our last visit. She discussed this further with her workmen's compensation physician who has requested that the patient undergo next in the series of lumbar epidural injections in hopes of improving reported back pain for which she is giving a pain score of 7/10. She returns today per the request to undergo the first in the second series of lumbar epidural injections. 2. The patient has been advised risks and benefits of a lumbar epidural injection. These risks include but are not necessarily limited to bleeding, bruising, infection, worsening pain, no relief of pain, also risk of temporary or permanent muscle weakness, temporary or permanent nerve damage, possible paralysis and . The patient states understood and wished to proceed. 3. No medication changes made at today's visit. The patient will continue current medical therapy as previously prescribed. 4. The patient was provided a release from work for 05/24/2020 to recover from today's procedure and potentially increase efficacy of the epidural injection. 5. We will see the patient back in followup visit on an as needed basis. PROCEDURE NOTE DESCRIPTION OF PROCEDURE: L5-S1 intralaminar epidural steroid injection under fluoroscopic guidance. This is the first procedure of the second series that the patient is undergoing. After obtaining written consent, the patient was taken back to the fluoroscopy suite, placed in a prone position with pillow under the abdomen to decrease lumbar lordosis. The skin overlying the lumbosacral area was then prepped and draped in aseptic fashion. The L5-S1 vertebral interspace was then identified by AP fluoroscopy. The skin and subcutaneous tissue overlying the target site of injection was anesthetized with 3 mL 1% lidocaine. A 20-gauge 4-1/2 inch Tuohy needle was then advanced under fluoroscopic guidance towards the epidural space using a parasagittal approach. The epidural space was identified using loss of resistance to air technique. After negative aspiration for heme or cerebrospinal fluid, a total of 1 mL of Omnipaque was injected. A lumbar epidurogram was confirmed using both AP and lateral [address] [address] PAIN MANAGEMENT CONSULTATION Name: DAVE SALMERON Room #: REG DARIO King#: [id number] Admission: 05/23/20 Attend Phys: Arcadio Mirza DO Discharge: Date of : 72 Report #: [id number] fluoroscopy. After negative aspiration for heme or cerebrospinal fluid, 5 mL of solution containing 2 mL 40 mg per mL, 80 mg total triamcinolone along with 3 mL of lidocaine 1% was injected in increments. Contrast spread was noted in the posterior epidural space. The needle was then retracted approximately half way and needle tract flushed with 1 mL of 1% lidocaine. Needle was then removed. There were no apparent sensory or motor deficits in the lower extremity following the procedure. A sterile bandage was placed over the injection site. The heart rate, pulse, oximetry and blood pressure were continuously monitored after the procedure. There were no apparent complications. The patient tolerated the procedure well and was carefully escorted to the recovery room in stable condition. There were no apparent complications. After meeting discharge criteria, the patient was then discharged home. <ELECTRONICALLY SIGNED> By: Arcadio Mirza DO 05/24/20 1257 1130 1204 Arcadio Mirza DO /nt
== END ==
LOC: PAIN 11-10 14:46
PROVIDERS: ATTEND Anesthesiology Pain Medicine
DX: M54.5 Low back pain (principal); M51.36 Other intervertebral disc degeneration, lumbar region; M47.817 Spondylosis without myelopathy or radiculopathy, lumbosacral region; G89.29 Other chronic pain; Z79.899 Other long term (current) drug therapy; Z88.8 Allergy status to other drugs, medicaments and biological substances; Z72.89 Other problems related to lifestyle

== ENCOUNTER → 2020-06-28 | Outpatient (CLI) | payer OTHER ==
[~2020-06-28] VITALS: Ht 167.6 cm; Wt 101.2 kg
[2020-06-28 14:47] VITALS: BP 140/92
--- NOTE | 2020-06-28 14:52 | NUR ---
Pain Clinic Assessment: 1. History of Osteoarthritis: NECK BACK History of Rheumatoid Arthritis: Not Applicable 2. Height: 5 ft. 6 in. 167.6 cm. Weight: 223.0 lb. oz. 101.152 kg. Patient's BMI: 36.0 3. Vital Signs: BP: 140/92 Pulse: 89 Resp: 16 Temp: 02 Sat: 97 ECG Mon: 4. Pain Intensity: 7 5. Fall Risk: Dizziness: Needs help standing or walking: Fallen in the last 3 months: Fall risk comments: 6. Patient on Blood Thinner: None 7. History of Hypertension: Y 8. Opioid Therapy greater than 6 weeks: N Opiate Contract Signed: 9. Risk Assessment Tool Provided: LOW RISK 1 10. Functional Assessment Tool: 11. Recreational Drug Use: Never Drug Type: Tobacco Use: Never Smoker Tobacco Type: Amount or Packs/day: How Many Years: Alcohol Use: Yes Frequency: Special Occasions Quant: 1
--- NOTE | 2020-07-05 11:11 | HPC ---
[facility] [address] [place] [address] PAIN MANAGEMENT CONSULTATION Name: DAVE SALMERON Room #: REG DARIO StuartBroderickLaya.#: [id number] Admission: 06/28/20 Attend Phys: Arcadio Mirza DO Discharge: Date of : 72 Report #: [id number] CC: Arcadio Valdivia REFERRING PHYSICIAN: Dr. Gipson. CHIEF COMPLAINT: Neck pain, bilateral upper extremity pain. HISTORY OF PRESENT ILLNESS: As you know, the patient is a 50-year-old female who was originally referred to our service for lumbar radicular issues and has undergone lumbar injections with some benefit. She was re-referred to our clinic by her Work Comp physician, Dr. Gipson to undergo cervical epidural injection. There is a limitation of steroid exposure that can be done in a 6-month period and that is 3 injections per 6 months no matter what the area. She returns today in followup visit to undergo cervical epidural injection. She was provided today's appointment as we are now within the safe range for the next in the series of injections. She is placing pain score 7/10. She has had no changes in medical history since our last visit. She returns today in followup visit for cervical epidural injection under fluoroscopic guidance. ALLERGIES: SULFA, LISINOPRIL. CURRENT MEDICATIONS: Potassium chloride, calcium carbonate, ascorbic acid, oxybutynin, trazodone, omeprazole, cyclobenzaprine, losartan and hydrochlorothiazide, meloxicam. SOCIAL HISTORY: The patient denies tobacco, IV or illicit drug use. Admits to occasional alcohol beverage. She is employed and working, unaccompanied today. IMAGING: No new imaging available. PHYSICAL EXAMINATION: VITAL SIGNS: Blood pressure 140/92, pulse 89, respiratory rate 16 and unlabored. The patient is 97% on room air. Height 5 feet 6 inches tall, weight 223 pounds, BMI calculated 36.0. GENERAL: Well-developed, well-nourished, well-hydrated exogenously obese 50-year-old female, appearing stated age, pain is rated around 7/10. HEENT: Normocephalic, atraumatic. Pupils equal, round and reactive. Speech is fluent. EXTREMITIES: Show no clubbing, no cyanosis, no edema. MUSCULOSKELETAL: Upper extremity strength appears symmetrical 5/5, intact to light touch from C5-T1 dermatomes. Tactile sensation appears normal. Spurling's test is reportedly positive on the right with radiation of symptoms towards the shoulder, but not into classic dermatomal distribution. ASSESSMENT: 1. Suspected cervical radiculopathy. 2. Displacement of cervical intervertebral disk with suspected radiculopathy. 3. Cervical spinal stenosis. 4. Cervical spondylosis. 5. Cervical neural foraminal stenosis. PLAN: 1. The patient returns today in followup visit having received authorization to undergo cervical epidural injection under fluoroscopic guidance. We are now in the safe range for providing an epidural injection to the cervical region. We have delayed the cervical epidural injection as she is receiving steroid exposures about every month and a half to 2 months, which is in the parameters of 3 injections in a 6-month period, 6 in a year. She returns for the cervical epidural injection to be provided today to address her symptoms that she provides a pain level of 7/10. The patient was advised risks and benefits of a cervical epidural injection. These risks include but are not necessarily limited to bleeding, bruising, infection, worsening of pain, no relief of pain, also risk of temporary or permanent muscle weakness, temporary or permanent nerve damage, possible paralysis, post-dural puncture headache and . The patient states she understood and wished to proceed. 2. No medication changes made at today's visit. We recommend the patient to continue current medical therapy as prior prescribed. 3. We will see the patient back in followup visit on an as needed basis for possible next in series of cervical epidural injections. We are hopeful the patient will see good and prolonged benefit with today's procedure. PROCEDURE NOTE DESCRIPTION OF PROCEDURE: C7-T1 cervical epidural steroid injection under fluoroscopic guidance. After obtaining written consent, the patient was taken back to fluoroscopy suite, placed in a prone position with separate pillows under chest and forehead to decrease cervical lordosis. Skin overlying the cervical area was then prepped and draped in aseptic fashion. C7-T1 cervical interspace identified by AP fluoroscopy. Skin and subcutaneous tissue overlying target site injection anesthetized with 3 mL of 1% lidocaine. A 20-gauge 3-1/2 inch Tuohy needle advanced under fluoroscopic guidance towards the epidural space using a midline approach. Epidural space identified using loss of resistance to air technique. After negative aspiration for heme or cerebrospinal fluid, 1 mL of Omnipaque injected. Cervical epidurogram confirmed using both AP and lateral fluoroscopy. After negative aspiration for heme or cerebrospinal fluid, 5 mL of solution containing 2 mL 40 mg per mL, 80 mg total triamcinolone along with 3 mL of lidocaine 1% injected slowly. Needle retracted senior care, flushed with 1 mL of 1% lidocaine and removed. Sterile bandage placed over injection site. No new motor deficits present in the upper extremities following procedure. The patient tolerated procedure well, carefully escorted to recovery room in stable condition. No apparent complication. After meeting discharge criteria, the patient discharged home. <ELECTRONICALLY SIGNED> By: Arcadio Mirza DO 07/05/20 1111 1113 1331 Arcadio Mirza DO /nt
== END | disposition home or self-care (01) ==
LOC: PAIN 06:55
PROVIDERS: ATTEND Anesthesiology Pain Medicine
DX: M50.20 Other cervical disc displacement, unspecified cervical region (principal); M48.02 Spinal stenosis, cervical region; M47.892 Other spondylosis, cervical region; G89.29 Other chronic pain; Z98.890 Other specified postprocedural states; Z79.899 Other long term (current) drug therapy; Z88.2 Allergy status to sulfonamides; Z88.8 Allergy status to other drugs, medicaments and biological substances

== ENCOUNTER → 2020-07-04 | Outpatient (CLI) | payer OTHER ==
[2020-07-04 14:42] LABS: ABSOLUTE NEUTROPHILS 9.7 thou/uL (1.4-8.2); BASOPHILS 0.4 % (0.0-2.0); EOSINOPHILS 0.5 % (0.0-3.0); HEMATOCRIT 41.1 % (37.0-47.0); HEMOGLOBIN 13.6 gm/dL (12.0-15.0); LYMPHOCYTES 20.1 % (24.0-44.0); MCHC 33.1 g/dL (28.0-37.0); MCV 84.8 fL (80.0-100.0); MONOCYTES 5.7 % (1.0-8.0); PLATELET COUNT 424 thou/uL (150-400); POLYS 73.3 % (36.0-66.0); RBC 4.85 mil/uL (4.20-5.00); RDW 13.6 % (10.5-14.5); WBC 13.3 thou/uL (4.0-11.0)
[2020-07-04 14:43] LABS: URINE BILIRUBIN NEGATIVE (Negative); URINE BLOOD NEGATIVE (Negative); URINE CLARITY CLEAR; URINE COLOR YELLOW; URINE GLUCOSE-RANDOM* NEGATIVE (Negative); URINE KETONES NEGATIVE (Negative); URINE LEUKOCYTES NEGATIVE (Negative); URINE NITRITE NEGATIVE (Negative); URINE PROTEIN (DIPSTICK) NEGATIVE (Negative); URINE UROBILINOGEN 0.2 E.U./dl (0.2-1.0)
[2020-07-04 15:01] LABS: ANION GAP 8 mmol/L (7-16); BUN 17 mg/dL (7-18); CALCIUM 9.1 mg/dL (8.5-10.1); CHLORIDE 99 mmol/L (98-107); CHOLESTEROL 183 mg/dL (<200); CO2 31 mmol/L (21-32); CREATININE 0.9 mg/dL (0.6-1.0); GLUCOSE 100 mg/dL (74-106); HDL CHOLESTEROL 66 mg/dL (>40); LDL CHOLESTEROL 102 mg/dL (<100); POTASSIUM 3.5 mmol/L (3.5-5.1); SGOT 14 U/L (15-37); SGPT 23 U/L (30-65); SODIUM 138 mmol/L (136-145); TC:HDL 2.8 Ratio (Not establshd); TOTAL BILIRUBIN 0.7 mg/dL (0.2-1.0); TOTAL PROTEIN 7.2 g/dL (6.4-8.2); TRIGLYCERIDE 76 mg/dL (<150); VLDL 15 mg/dL (<40)
[2020-07-05 07:08] LABS: LUTEINIZING HORMONE (LH) 33.2 mIU/mL (()); TESTOSTERONE* < 3 ng/dL (8-48)
== END ==
LOC: RAD 13:58
PROVIDERS: ATTEND Nurse Practitioner
DX: Z12.31 Encounter for screening mammogram for malignant neoplasm of breast (principal); Z00.00 Encounter for general adult medical examination without abnormal findings

== ENCOUNTER → 2020-08-28 | Outpatient (CLI) | payer OTHER ==
[2020-08-28 16:20] LABS: ABSOLUTE NEUTROPHILS 6.4 thou/uL (1.4-8.2); BASOPHILS 0.7 % (0.0-2.0); HEMOGLOBIN 12.9 gm/dL (12.0-15.0); LYMPHOCYTES 27.8 % (24.0-44.0); MCH 29.3 pg (26.0-34.0); MCHC 34.1 g/dL (28.0-37.0); MCV 85.8 fL (80.0-100.0); MONOCYTES 6.7 % (1.0-8.0); PLATELET COUNT 291 thou/uL (150-400); POLYS 61.8 % (36.0-66.0); RBC 4.42 mil/uL (4.20-5.00); URINE BILIRUBIN NEGATIVE (Negative); URINE BLOOD NEGATIVE (Negative); URINE CLARITY CLEAR; URINE COLOR YELLOW; URINE GLUCOSE-RANDOM* NEGATIVE (Negative); URINE KETONES NEGATIVE (Negative); URINE LEUKOCYTES-REFLEX NEGATIVE (Negative); URINE NITRITE-REFLEX NEGATIVE (Negative); URINE PROTEIN (DIPSTICK) NEGATIVE (Negative); URINE UROBILINOGEN 0.2 E.U./dl (0.2-1.0); WBC 10.4 thou/uL (4.0-11.0)
[2020-08-28 16:48] LABS: ANION GAP 9 mmol/L (7-16); BUN 12 mg/dL (7-18); CALCIUM 9.3 mg/dL (8.5-10.1); CHLORIDE 100 mmol/L (98-107); CHOLESTEROL 198 mg/dL (<200); CO2 31 mmol/L (21-32); CREATININE 0.9 mg/dL (0.6-1.0); GLUCOSE 92 mg/dL (74-106); HDL CHOLESTEROL 57 mg/dL (>40); LDL CHOLESTEROL 122 mg/dL (<100); POTASSIUM 3.2 mmol/L (3.5-5.1); SGOT 15 U/L (15-37); SGPT 20 U/L (30-65); SODIUM 140 mmol/L (136-145); TC:HDL 3.5 Ratio (Not establshd); TOTAL BILIRUBIN 0.6 mg/dL (0.2-1.0); TRIGLYCERIDE 95 mg/dL (<150); VLDL 19 mg/dL (<40)
[2020-08-29 03:06] LABS: LUTEINIZING HORMONE (LH) 51.2 mIU/mL (()); TESTOSTERONE* 3 ng/dL (8-48)
== END ==
LOC: LAB 15:45
PROVIDERS: ATTEND Nurse Practitioner
DX: Z00.00 Encounter for general adult medical examination without abnormal findings (principal)

== ENCOUNTER → 2020-09-25 | Outpatient (CLI) | payer OTHER ==
[2020-09-25 10:00] LABS: ALBUMIN 3.8 g/dL (3.4-5.0); CALCIUM 9.3 mg/dL (8.5-10.1); TOTAL BILIRUBIN 0.6 mg/dL (0.2-1.0); TOTAL PROTEIN 6.9 g/dL (6.4-8.2)
== END ==
LOC: LAB 09:19
PROVIDERS: ATTEND Nurse Practitioner
DX: E87.6 Hypokalemia (principal)

== ENCOUNTER → 2020-10-30 | Outpatient (CLI) | payer OTHER | LOC: MRI 12:06 | PROVIDERS: ATTEND Physical Medicine & Rehabilitation Sports Medicine | DX: M47.22 Other spondylosis with radiculopathy, cervical region (principal); M50.122 Cervical disc disorder at C5-C6 level with radiculopathy; M48.02 Spinal stenosis, cervical region ==

== ENCOUNTER → 2020-11-23 | Outpatient (CLI) | payer OTHER | LOC: MRI 14:08 | PROVIDERS: ATTEND Physical Medicine & Rehabilitation Sports Medicine | DX: M51.17 Intervertebral disc disorders with radiculopathy, lumbosacral region (principal); M51.15 Intervertebral disc disorders with radiculopathy, thoracolumbar region; M47.26 Other spondylosis with radiculopathy, lumbar region; M48.061 Spinal stenosis, lumbar region without neurogenic claudication ==

== ENCOUNTER → 2020-12-27 | Outpatient (CLI) | payer OTHER | LOC: LAB 10:53 | PROVIDERS: ATTEND Nurse Practitioner | DX: Z01.812 Encounter for preprocedural laboratory examination (principal); Z20.822 Contact with and (suspected) exposure to COVID-19 ==